=== PATIENT | female | born 1990 | race Caucasian/White ===

== ENCOUNTER 2024-06-23 23:05 | Inpatient (IN) ==
[2024-06-23] MEDS ORDERED: Lactated Ringers 1000 ml BAG 1,000 ML IV SCH (23:45)
[2024-06-23] MEDS ORDERED: Lidocaine 1% VIAL 10 MG/ML 30 ML VIAL INJ PRN (23:47)
[2024-06-23] MEDS ORDERED: Nalbuphine 10 MG/ML 1 ML VIAL IV PRN (23:47)
[2024-06-23] MEDS ORDERED: Buffered Lidocaine 1% SYRIN 1 ml INTRADERM ONE (23:47)
[2024-06-23] MEDS ORDERED: Lactated Ringers 1000 ml BAG 1,000 ML IV ONE (23:47)
[2024-06-24 01:14] LABS: ABS Lymphocytes 1.9 10^3/uL (1.0-4.8); ABS Neutrophils 11.8 10^3/uL (1.5-7.6); ABS Nucleated RBC 0.02 10^3/ul; Eosinophil % 0.3 %; Hematocrit 37.7 % (35-45); Hemoglobin 12.9 g/dL (11.5-14.3); Mean Corpuscular Hemoglobin 34.3 pg (27-33); Mean Corpuscular Hgb Conc 34.1 g/dL (31-36); Mean Corpuscular Volume 100.5 fL (80-97); Mean Platelet Volume 10.6 fL (7.5-11.2); Nucleated Red Blood Cells % 0.1 %/100WBC (0.0-0.8); Platelet Count 169 10^3/uL (150-450); Red Blood Count 3.75 10^6/uL (3.63-4.92); Red Cell Distribution Width 13.6 % (12-17); White Blood Count 14.8 10^3/uL (3.8-11.8)
[2024-06-24 01:37] LABS: Urine Benzodiazepine Screen None Detected (None Detect); Urine Cannabinoids Screen None Detected (None Detect); Urine Opiates Screen None Detected (None Detect)
[2024-06-24] MEDS ORDERED: Oxytocin in LR 20,000 MILLI.UNIT/1,000 ML BAG IV ONE (03:09)
[2024-06-24] MEDS ORDERED: Lidocaine 2% JELLY 6 ML Topical TOPICAL SCH (04:00)
[2024-06-24] MEDS ORDERED: Witch Hazel PAD JAR TOPICAL PRN (04:16)
[2024-06-24] MEDS ORDERED: Glycerin ADULT 2.4 gm SUPP PR PRN (04:16)
[2024-06-24] MEDS ORDERED: Oxytocin in LR 20,000 MILLI.UNIT/1,000 ML BAG IV SCH (04:20)
[2024-06-24] MEDS: Dibucaine 1% OINT 28.35 GM TUBE PR PRN (04:56)
[2024-06-24] MEDS ORDERED: Lactated Ringers 1000 ml BAG 1,000 ML IV SCH (05:00)
[2024-06-25 06:44] LABS: ABS Basophils 0.1 10^3/uL (0.0-0.1); ABS Eosinophils 0.1 10^3/uL (0.0-0.5); ABS Lymphocytes 2.3 10^3/uL (1.0-4.8); ABS Monocytes 0.7 10^3/uL (0.0-0.9); ABS Neutrophils 6.7 10^3/uL (1.5-7.6); Eosinophil % 1.2 %; Hematocrit 34.2 % (35-45); Hemoglobin 11.6 g/dL (11.5-14.3); Lymphocyte % 23.5 %; Mean Corpuscular Hgb Conc 33.9 g/dL (31-36); Mean Corpuscular Volume 100.3 fL (80-97); Mean Platelet Volume 9.5 fL (7.5-11.2); Platelet Count 141 10^3/uL (150-450); Red Blood Count 3.41 10^6/uL (3.63-4.92); Red Cell Distribution Width 13.6 % (12-17); White Blood Count 9.9 10^3/uL (3.8-11.8)
[2024-06-25 08:15] VITALS: BP 115/77
== END 2024-06-25 13:14 | disposition home or self-care (01) | DRG 807 ==
LOC: MCHOBOUT 23:05 → MCHOB 23:39
PROVIDERS: ADMIT Advanced Practice Midwife; ATTEND Advanced Practice Midwife